=== PATIENT | female | born 1935 | race Caucasian/White ===

== ENCOUNTER 2024-03-15 19:53 | Outpatient (CLI) | payer MEDICARE | END 2024-03-15 23:59 | disposition critical access hospital (66) | LOC: EMS 19:53 | DX: S09.90XA Unspecified injury of head, initial encounter (principal); M25.562 Pain in left knee; S89.92XA Unspecified injury of left lower leg, initial encounter; W10.8XXA Fall (on) (from) other stairs and steps, initial encounter; Y93.89 Activity, other specified; Y92.008 Other place in unspecified non-institutional (private) residence as the place of occurrence of the external cause | CPT/HCPCS: A0425; A0427 ==

== ENCOUNTER 2024-03-15 20:26 | Emergency (ER) | payer MEDICAID, MEDICARE, OTHER ==
[2024-03-15 20:48] LABS: BASOPHILS % (AUTO) 0.3 %; EOSINOPHILS # (AUTO) 0.2 10^3/uL (0.0-0.7); EOSINOPHILS % (AUTO) 1.7 %; HCT - HEMATOCRIT 43.9 % (37.0-47.0); HGB - HEMOGLOBIN 14.5 g/dL (12.0-16.0); LYMPHOCYTES # (AUTO) 2.4 10^3/uL (1.5-3.5); LYMPHOCYTES % (AUTO) 20.5 %; MEAN CORPUSCULAR VOLUME 93.8 fL (81.0-99.0); MEAN PLATELET VOLUME 9.7 fL (7.9-10.8); MONOCYTES # (AUTO) 0.8 10^3/uL (0.0-1.0); MONOCYTES % (AUTO) 7.2 %; PLT - PLATELET COUNT 223 10^3/uL (130-450); RED BLOOD COUNT 4.68 10^6/uL (4.20-5.40); RED CELL DISTRIBUTION WIDTH 13.2 % (12.0-15.0); WHITE BLOOD COUNT 11.5 x10^3/uL (4.8-10.8)
[2024-03-15 20:52] LABS: INR 1.5 (0.8-1.2); PT - PROTHROMBIN TIME 16.5 secs (9.9-12.6)
[2024-03-15 20:57] LABS: ALBUMIN 4.3 g/dL (3.2-5.5); ALBUMIN/GLOBULIN RATIO 1.5 (1.0-2.2); BILIRUBIN,TOTAL 0.7 mg/dL (0.2-1.0); CALCIUM 9.8 mg/dL (8.5-10.3); CREATININE 1.2 mg/dL (0.6-1.3); POTASSIUM 4.4 mmol/L (3.5-4.5); TOTAL PROTEIN 7.2 g/dL (6.4-8.9)
--- NOTE | 2024-03-15 21:15 | ED Physician Documentation ---
History of Present Illness - Stated complaint Stated Complaint: FALL/L LEG INJ - Chief complaint Chief Complaint: General - History obtained from History obtained from: Patient, EMS - Additonal information Additional information: 88-year-old woman on Xarelto for A-fib presents after a ground-level fall injuring her left knee. She is not able to walk or bear weight. Pain is controlled on arrival as she has had 75 mcg of fentanyl from EMS. She thinks she might of hit the right/back of her head on the way down. Has no headache or loss of consciousness. PD PAST MEDICAL HISTORY - Allergies Allergies/Adverse Reactions: Allergies Allergy/AdvReac Type Severity Reaction Status Date / Time Unable to Assess Allergy Verified 03/15/24 20:31 PD ED PE NORMAL - Vitals Vital signs reviewed: Yes - General General: Alert and oriented X 3, No acute distress - HEENT HEENT: PERRL, EOMI - Neck Neck: No bony TTP - Cardiac Cardiac: No murmur, Other (Irregularly irregular, A-fib on the monitor that is rate controlled) - Respiratory Respiratory: No respiratory distress, Clear bilaterally - Abdomen Abdomen: Normal bowel sounds, Soft - Back Back: No CVA TTP, No spinal TTP - Derm Derm: Normal color, Warm and dry - Extremities Extremities: Other (Severe tenderness and possible deformity of the anterior left knee with bruising. She is not able to range it at all. She is in too much pain to check for her ligaments. Ankle, foot, and hip are nontender. Normal left pedal pulses.) - Neuro Neuro: Alert and oriented X 3, Normal speech Results - Vitals Vitals: Vital Signs - 24 hr 03/15/24 03/15/24 03/15/24 20:25 20:36 22:38 Temperature 36.4 C L 36.4 C L Heart Rate 79 83 81 Respiratory 12 16 Rate Blood Pressure 165/85 H 187/102 H 149/79 H O2 Saturation 98 98 94 Oxygen O2 Source Room air - Labs Labs: Laboratory Tests 03/15/24 03/15/24 03/15/24 20:40 20:40 20:40 WBC 11.5 H RBC 4.68 Hgb 14.5 Hct 43.9 MCV 93.8 MCH 31.0 MCHC 33.0 RDW 13.2 Plt Count 223 MPV 9.7 Neut # (Auto) 8.0 H Lymph # (Auto) 2.4 Armstrong # (Auto) 0.8 Eos # (Auto) 0.2 Baso # (Auto) 0.0 Absolute Nucleated RBC 0.00 Nucleated RBC % 0.0 PT 16.5 H INR 1.5 H Sodium 139 Potassium 4.4 Chloride 105 Carbon Dioxide 28 Anion Gap 6.0 BUN 22 H Creatinine 1.2 Estimated GFR (MDRD) 42 L Glucose 115 H Calcium 9.8 Total Bilirubin 0.7 AST 19 ALT 11 Alkaline Phosphatase 93 Total Protein 7.2 Albumin 4.3 Globulin 2.9 Albumin/Globulin Ratio 1.5 - Rads (name of study) CT of the head and cervical spine were negative for acute traumatic findings. Relevant Findings:: Final report received, EMP independent interpretation of test Left knee x-ray demonstrates a distracted transverse patella fracture Relevant Findings:: Final report received, EMP independent interpretation of test PD Medical Decision Making - ED course Complexity details: reviewed results (CBC, CMP, and INR are only notable for mild leukocytosis, appropriate elevation in INR due Xarelto and mild kidney disease of unclear acuity.) ED course: This is an 88-year-old woman who is anticoagulated who presents after ground- level fall. She was made a modified trauma due to possible head injury and CTs of the head and neck were obtained. On radiography of the knee she does have a distracted patellar injury. She lives in [place] and I do not think she is dischargeable given her age, comorbidities, inability to ambulate etc. She would like potential transfer down to [facility] in [place] for operative fixation. She was placed in a knee immobilizer after some more pain medication which she tolerated okay. She started to have some nausea and vomiting probably related to narcotics and was treated with IV fluids and Zofran. [facility] was called and awaiting a callback at 11 PM shift change when I turned over care to Dr. Marquis. Departure - Departure Disposition: 02 Transfer Acute Care Hosp Clinical Impression: Anticoagulated Closed fracture of left patella Qualifiers: Encounter type: initial encounter Fracture morphology: transverse Fracture alignment: displaced Qualified Code(s): S82.032A - Displaced transverse fracture of left patella, initial encounter for closed fracture Afib Qualifiers: Atrial fibrillation type: unspecified Qualified Code(s): I48.91 - Unspecified atrial fibrillation Fall Qualifiers: Encounter type: initial encounter Qualified Code(s): W19.XXXA - Unspecified fall, initial encounter Head injury Qualifiers: Encounter type: initial encounter Qualified Code(s): S09.90XA - Unspecified injury of head, initial encounter Condition: Stable Forms: PCP List
[2024-03-15] MEDS: HYDROmorphone 1 MG/ML CARPUJECT IVP STA (21:18)
--- NOTE | 2024-03-15 21:41 | CT Report ---
PROCEDURE: Head WO INDICATIONS: head inj TECHNIQUE: Noncontrast 4.5 mm thick angled axial sections acquired from the foramen magnum to the vertex. For r adiation dose reduction, the following was used: automated exposure control, adjustment of mA and/or kV according to patient size. COMPARISON: None. FINDINGS: Image quality: Diagnostic. CSF spaces: Basal cisterns are patent. No extra-axial fluid collections. Ventricles are normal in size and shape. Brain: No midline shift. No intracranial masses or hemorrhage. Gan-white matter interface is norm al. Skull and face: Calvarium and visualized facial bones are intact, without suspicious lesions. Sinuses: Visualized sinuses and mastoids are clear. IMPRESSION: No acute intracranial pathology. No acute calvarial fracture. Reviewed by: Finn Ayala MD on 03/15/2024 9:39 PM PDT Approved by: Finn Ayala MD on 03/15/2024 9:39 PM PDT Station ID: [id number]
--- NOTE | 2024-03-15 21:44 | CT Report ---
PROCEDURE: Cervical Spine WO INDICATIONS: head inj TECHNIQUE: Noncontrast 3 mm thick sections acquired from the skull base to the T4 level. Sagittal and coronal r eformats were then constructed. For radiation dose reduction, the following was used: automated exp osure control, adjustment of mA and/or kV according to patient size. COMPARISON: None. FINDINGS: Image quality: Diagnostic. Bones: No acute fractures or dislocations. No acute compression fractures of the vertebral bodies. Craniocervical junction is intact. C1-C2 relationship is preserved. Visualized superior ribs are inta ct. Straightening of cervical lordosis likely related to positioning and/or concurrent muscle spasm. Mult ilevel cervical spondylosis most severe at C5-6. Soft tissues: Prevertebral soft tissues are normal in thickness. No paravertebral hematomas. No ap ical pneumothoraces. IMPRESSION: CT cervical spine without acute fracture or traumatic malalignment. Straightening of cervical lordosis likely related to positioning and/or concurrent muscle spasm. Multilevel cervical spondylosis most severe at C5-6. Reviewed by: Finn Ayala MD on 03/15/2024 9:42 PM PDT Approved by: Finn Ayala MD on 03/15/2024 9:42 PM PDT Station ID: [id number]
--- NOTE | 2024-03-15 21:45 | XRAY Report ---
PROCEDURE: Knee 4+V LT INDICATIONS: knee inj TECHNIQUE: 4 views of the knee(s) were acquired. COMPARISON: None. FINDINGS: Bones: There is a transverse fracture of the mid patella with distraction of the fracture fragments superiorly and inferiorly. No suspicious bony lesions. Soft tissues: Small knee joint effusion. Moderate anterior left knee soft tissue swelling No suspici ous soft tissue calcifications or masses. IMPRESSION: Transverse fracture of the left patella with distraction of the fracture fragments. Reviewed by: Finn Ayala MD on 03/15/2024 9:44 PM PDT Approved by: Finn Ayala MD on 03/15/2024 9:44 PM PDT Station ID: [id number]
[2024-03-15] MEDS ORDERED: ACETAMINOPHEN 500 MG TABLET PO PRN (22:18)
[2024-03-15] MEDS: ONDANSETRON 4 MG/2 ML VIAL IVP STA (22:26)
[2024-03-15] MEDS: D5.45NS W/20 MEQ KCL 1,000 ML IV SCH (22:27)
--- NOTE | 2024-03-16 00:12 | ED Physician Documentation ---
ED Addendum - Addendum Addendum: 03/16/24 00:07 I received signout/turnover of care on this patient from Dr. Zhao; please see his note for complete H&P. In short, this is an elderly patient who takes Xarelto for atrial fibrillation, presents after sustaining a fall earlier tonight. Unremarkable CT head, CT cervical spine. Unfortunately, the chief complaint is left knee pain and the plain-film x-rays of her left knee demonstrate a transverse fracture of the patella with significant distraction of the fracture fragments. Per signout from Dr. Zhao, the patient lives in [place] and was requesting transfer to [facility] (for reasons of proximity to where she lives). I was put in touch with the orthopedic surgeon at [facility] (), who agrees patient is appropriate for transfer to their facility. He says this is indeed an operative injury, recommends admission to medical team with orthopedic consult. The transfer center coordinator says he will recontact me when the hospitalist is available to discuss this case. I then was put in touch with the [facility] on-call practitioner; we discussed this case, and he agrees patient is appropriate for transfer. He says bed availability at other facilities has been practically non-existent tonight, and thus he supposes that, if patient ends up weight-listed for [facility], this would probably still be the plan if we were to recontact him and ask him to look into other facilities. I subsequently heard from Dr. Meza (hospitalist at [facility]) who accepts patient for transfer to [facility] to hospitalist service. There are no beds available at this time but transfer center c oordinator anticipates beds will be available later today (03/16). Patient will be held in [facility] ED overnight until bed is available at [facility] (note that there are also no beds available at [facility]).
[2024-03-16] MEDS: LEVOTHYROXINE 100 MCG TABLET PO SCH (07:26)
[2024-03-16] MEDS: PANTOPRAZOLE 40 MG TABLET PO SCH (07:26)
[2024-03-16] MEDS: ATORVASTATIN 40 MG TABLET PO SCH (09:08)
[2024-03-16] MEDS: METOPROLOL SUCCINATE 25 MG TABLET PO SCH (09:08)
[2024-03-16] MEDS: oxyCODONE 5 MG TABLET PO PRN (11:59)
[2024-03-16 13:39] VITALS: BP 134/55; O2SAT 98
[2024-03-16] MEDS ORDERED: ONDANSETRON 4 MG/2 ML VIAL IVP STA (14:39)
--- NOTE | 2024-03-16 14:41 | ED Physician Documentation ---
ED Addendum - Addendum Addendum: Patient was endorsed to me by Dr. Marquis this morning. He had spoken with orthopedics at [facility] as well as with the hospital medicine team there. Throughout my shift we are awaiting a bed. Subsequently a bed was available and [facility] is now here to provide transport. Through course in the emergency department the patient had her usual home oral meds with exception of holding her anticoagulation. She was resting comfortably and in no distress throughout. Updated her and her daughters on the plan of care and they are agreeable. Will be transported via EMS to [place] for admission, ORIF per her request to be closer to her daughter and to her home. 03/16/24 14:40
[2024-03-16] MEDS: ONDANSETRON 4 MG/2 ML VIAL IVP PRN (14:44)
[2024-03-16] MEDS: fentaNYL 100 MCG/2 ML VIAL IVP STA (14:45)
== END 2024-03-16 15:15 | disposition short-term general hospital (02) ==
LOC: ED 20:26
DX: S82.032A Displaced transverse fracture of left patella, initial encounter for closed fracture (principal); S09.90XA Unspecified injury of head, initial encounter; W18.39XA Other fall on same level, initial encounter; I48.91 Unspecified atrial fibrillation; Z79.01 Long term (current) use of anticoagulants
CPT/HCPCS: 36415; 70450; 72125; 73564; 80053; 85025; 85610; 96374; 96375; 96376; 99285; A9270; J1170